=== PATIENT | female | born 1965 | race Caucasian/White ===

== ENCOUNTER 2024-10-11 16:37 | Emergency (ER) | payer BC, SELFPAY ==
[2024-10-11 16:39] VITALS: BP 118/100
--- NOTE | 2024-10-11 17:33 | ED.MUSCINJ ---
HPI-Injury
General
Chief Complaint: Musculo-Skeletal Complaint
Source: patient
Exam Limitations: none
Time Seen by Provider: 10/11/24 17:29
Nursing documentation reviewed up to this point in time: agreed with
History of Present Illness-Injury
Initial Injury comments:
59-year-old female with no significant past medical history states at 4:45 PM today she went to step out of her car in her garage, the floor was wet and she slid and fell with direct impact to the left elbow. She has had pain and swelling in the
area since. She denies hitting her head or any other injury.
Past History
Past History
ED Past Medical History: Psychiatric (Depression takes Lexapro)
ED Past Surgical History: None
Social History
Tobacco: Non-smoker
Alcohol: Occasional
Personal:
Living: with family
Employment: Employed (psychiatric attendant)
Review of Systems
Review of Systems
Allergies reviewed?: Yes
All Other Systems: ROS reviewed and negative except as documented in HPI and ROS
Musculoskeletal: Reports other (Pain left elbow)
Skin: Reports no symptoms
Neurological: Denies weakness or numbness
Musculoskeletal Injury Exam
Musculoskeletal Injury Exam
Left Posterior Elbow:
Pain with Movement?: Moderate
Tender to palpation?: Moderate
Soft tissue swelling?: Mild
Joint instability?: No
Malalignment/deformity?: No
Range of motion: Limited
Distal skin color and temperature: normal-warm & good color
Capillary Refill: normal
Normal distal neurovascular exam?: Yes
Phy Exam
Physical Exam
Physical Exam:
GENERAL: No acute distress. A&Ox3.
CONSTITUTIONAL: Afebrile.
RESPIRATORY: Regular respirations, nonlabored, lungs clear.
CARDIOVASCULAR: Regular rate and rhythm, no murmurs, no rubs.
MUSCULOSKELETAL: Moves with ease. Well perfused.
SKIN: Warm, dry, pink
PSYCH: Normal mood and affect. Well kept, interactive and appropriate
NEUROLOGIC: Awake, alert and oriented. No focal neurological deficits
Injury Course
Orders/Labs/Results
Orders:
Orders
10/11/24 16:42
Elbow, 3 view, Left [CR Elbow - Left Min 3 Views ] Urgent
Comment:
Reason For Exam: injury
10/11/24 17:33
Long Arm Left-Treatment ONCE
Sling Left-Treatment ONCE
MDM/Problems Addressed
Differential Diagnosis Includes:
Contusion versus fracture left elbow
MDM/Problems Addressed:
59-year-old female with no significant past medical history states at 4:45 PM today she went to step out of her car in her garage, the floor was wet and she slid and fell with direct impact to the left elbow. She has had pain and swelling in the
area since. She denies hitting her head or any other injury.
X-ray left elbow initially read by this examiner: Avulsion fracture of the olecranon
*Critical Care Note
Total Time (30-74mins, 75-104mins- exclusive of procedures): Not Applicable
ED Attending Note
-
Portions of this chart may have been created with voice recognition software.� Occasional wrong word or��sound alike� substitutions may have occurred due to the inherent limitations of voice recognition software.
Discharge Plan
Departure
Patient Disposition: Home (Routine Discharge)
Date of Disposition: 10/11/24
Time of Disposition: 17:37
Patient with high blood pressure during this ER visit?: Yes
Condition: Good
Discharge Problem:
Fall from slip, trip, or stumble, Fracture of left elbow
Instructions: Using Cold for Pain, Elbow Fracture, Adult ED
Referrals:
Coleman Salazar MD [Active] - Next open appointment
Activity Restrictions/Additional Instructions:
As we discussed, you fractured your elbow. Keep the splint on until you follow-up with the orthopedic doctor. Call the orthopedic doctors office tomorrow for next available appointment.
Tylenol or ibuprofen as needed for pain.
Interventions
Interventions:
*Risk Screen - Suicide Last Done: 10/11/24 18:12
*General Assessment Last Done: 10/11/24 18:12
*Neglect/Abuse Screening Last Done: 10/11/24 18:12
*ED- Fall Risk Assessment Last Done: 10/11/24 18:12
*ED COVID-19 Vaccine History Last Done: 10/11/24 18:12
*Nursing Disposition Last Done: 10/11/24 18:19
ED-Musculoskeletal Assessment Last Done: 10/11/24 18:12
Discharge Date and Time
Discharge Date/Time: 10/11/24 18:19
Print Language: SLOVENIAN
== END 2024-10-11 18:19 | disposition home or self-care (01) ==
LOC: EMR 16:37
PROVIDERS: EMERGENCY PHYSICIAN Emergency Medicine
DX: S52.022A Displaced fracture of olecranon process without intraarticular extension of left ulna, initial encounter for closed fracture (principal); W01.0XXA Fall on same level from slipping, tripping and stumbling without subsequent striking against object, initial encounter
CPT/HCPCS: 29105; 99283; 73080

== ENCOUNTER 2024-10-17 06:13 | Day surgery (SDC) | payer BC, SELFPAY ==
[2024-10-17] VITALS (8 sets, daily range): BP systolic 102–148; BP diastolic 39–78
[2024-10-17] MEDS: TYLENOL 1000 MG PO (10:10)
[2024-10-17] MEDS: CELEBREX 200 MG PO (10:10)
[2024-10-17] MEDS: NORMOSOL-R/PLASMALYTE-A 1000 IV (10:10)
[2024-10-17] MEDS: DILAUDID 0.5 MG IV (12:48)
== END 2024-10-17 14:40 | disposition home or self-care (01) ==
LOC: SDS 06:13
PROVIDERS: ATTENDING PHYSICIAN Orthopaedic Surgery
DX: S52.022A Displaced fracture of olecranon process without intraarticular extension of left ulna, initial encounter for closed fracture (principal); W19.XXXA Unspecified fall, initial encounter
CPT/HCPCS: 24685; 36415; 93005; C1713; C1776